=== PATIENT | male | born 1985 | race Caucasian/White ===

== ENCOUNTER 2017-07-04 14:08 | Emergency (ER) | payer OTHER ==
--- NOTE | 2017-07-04 14:39 | ED Physician Documentation ---
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 He did have 2 drinks last night and today he has developed sweats shakes and chest pain. The patient gives a history of regular alcohol use. He drinks vodka probably 5-6 drinks per night and he does not remember being without alcohol for 5 days in a row in the past 12 years.He does recall that he was told when he was 19 that he had some issue with his liver on some blood work that was done and he did not follow-up with this. Review of Systems Constitutional: reports: Fever, Chills, Fatigue, Sweats Eyes: denies: Decreased vision Ears: denies: Ear pain Nose: denies: Rhinorrhea / runny nose, Congestion Throat: denies: Sore throat Cardiac: reports: Chest pain / pressure. denies: Palpitations Respiratory: reports: Cough. denies: Dyspnea GI: denies: Abdominal Pain, Nausea, Vomiting : denies: Dysuria, Frequency PD PAST MEDICAL HISTORY - Past Medical History Past Medical History: Yes GI: GERD - Past Surgical History Past Surgical History: No - Present Medications Home Medications: Ambulatory Orders Medication Instructions Recorded Confirmed Lorazepam [Ativan] 1 - 2 mg PO Q6HR PRN #30 tablet 07/04/17 - Allergies Allergies/Adverse Reactions: Allergies Allergy/AdvReac Type Severity Reaction Status Date / Time No Known Drug Allergies Allergy Verified 07/04/17 14:27 - Social History Does the pt smoke?: No Smoking Status: Never smoker Does the pt drink ETOH?: Yes ETOH Use: Liquor Does the pt have substance abuse?: No - POLST Patient has POLST: No PD ED PE NORMAL - Vitals Vital signs reviewed: Yes (Tachycardic and hypertensive marked with low-grade fever) - General General: Alert and oriented X 3, Well developed/nourished, Other (The patient is shaking consistent with alcohol withdrawal and he appears flushed. 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, No motor deficit, No sensory deficit, Normal speech Eye Opening: Spontaneous Motor: Obeys Commands Verbal: Oriented GCS Score: 15 - Psych Psych: Normal mood, Normal affect Results - Vitals Vitals: Vital Signs - 24 hr 07/04/17 07/04/17 07/04/17 14:20 15:34 16:40 Temperature 37.6 C H 37.5 C Heart Rate 106 H 93 100 Respiratory 18 15 19 Rate Blood Pressure 180/102 H 151/87 H 152/75 H O2 Saturation 96 96 96 Oxygen O2 Source Room air - EKG (time done) 1416 Rate: Rate (enter#) (95) Rhythm: LAE, Other (sinus arrhythmia) Ischemia: Normal ST segments Compare to prior EKG: Old EKG unavailable Computer interpretation: Agree with computer - Labs Labs: Laboratory Tests 07/04/17 07/04/17 07/04/17 14:35 14:35 14:35 WBC 8.7 RBC 4.91 Hgb 15.1 Hct 43.8 MCV 89.2 MCH 30.8 MCHC 34.6 RDW 13.3 Plt Count 167 MPV 7.3 L Neut # 6.9 H Lymph # 1.0 L [place] # 0.8 Eos # 0.0 Baso # 0.1 Absolute Nucleated RBC 0.00 Nucleated RBC % 0.0 PT 13.6 H INR 1.2 Sodium 133 L Potassium 3.4 L Chloride 94 L Carbon Dioxide 23 Anion Gap 16.0 H BUN 6 Creatinine 0.6 Estimated GFR (MDRD) 158 Glucose 134 H Calcium 9.1 Total Bilirubin 1.5 H AST 170 H ALT 128 H Alkaline Phosphatase 109 Troponin I Total Protein 8.6 H Albumin 4.6 Globulin 4.0 Albumin/Globulin Ratio 1.1 Lipase 26 Ethyl Alcohol < 5.0 07/04/17 14:35 WBC RBC Hgb Hct MCV MCH MCHC RDW Plt Count MPV Neut # Lymph # [place] # Eos # Baso # Absolute Nucleated RBC Nucleated RBC % PT INR Sodium Potassium Chloride Carbon Dioxide Anion Gap BUN Creatinine Estimated GFR (MDRD) Glucose Calcium Total Bilirubin AST ALT Alkaline Phosphatase Troponin I < 0.04 Total Protein Albumin Globulin Albumin/Globulin Ratio Lipase Ethyl Alcohol PD MEDICAL DECISION MAKING - ED course Complexity details: reviewed results, re-evaluated patient, considered differential, d/w patient, d/w family ED course: 31-year-old male with acute alcohol withdrawal is administered Ativan intravenously and a banana bag. He has marked improvement and is interested in stopping drinking. We will provide some ativan for withdrawal. Departure - Departure Disposition: 01 Home, Self Care Clinical Impression: Alcohol withdrawal Qualifiers: Complication of substance-induced condition: uncomplicated Qualified Code(s): F10.230 - Alcohol dependence with withdrawal, uncomplicated Condition: Stable Instructions: ED Withdrawal Alcohol Follow-Up: [facility] [Provider Group] Prescriptions: Lorazepam [Ativan] 1 - 2 mg PO Q6HR PRN #30 tablet PRN Reason: withdrawal symptoms
[2017-07-04] MEDS ORDERED: MULTIVITAMIN 10 ML in SODIUM CHLORIDE 0.9% 1,000 ML IV STA (14:40)
[2017-07-04] MEDS ORDERED: MAGNESIUM SULFATE 2 GRAM 2 GM/50 ML BAG IV STA (14:40)
[2017-07-04] MEDS ORDERED: THIAMINE INJ 100 MG, FOLIC ACID INJ 1 MG in SODIUM CHLORIDE 0.9% 100ML 100 ML IV STA (14:40)
[2017-07-04] MEDS ORDERED: LORazepam 2 MG/ML SYRINGE IVP STA ×2 (14:41→17:12)
[2017-07-04 14:46] LABS: BASOPHILS # (AUTO) 0.1 10^3/uL (0.0-0.1); BASOPHILS % (AUTO) 0.7 %; EOSINOPHILS % (AUTO) 0.3 %; HCT - HEMATOCRIT 43.8 % (42.0-52.0); HGB - HEMOGLOBIN 15.1 g/dL (14.0-18.0); LYMPHOCYTES % (AUTO) 11.1 %; MEAN CORPUSCULAR HEMOGLOBIN 30.8 pg (27.0-31.0); MEAN CORPUSCULAR HGB CONC 34.6 g/dL (32.0-36.0); MEAN CORPUSCULAR VOLUME 89.2 fL (80.0-94.0); MEAN PLATELET VOLUME 7.3 fL (7.4-11.4); MONOCYTES # (AUTO) 0.8 10^3/uL (0.0-1.0); MONOCYTES % (AUTO) 8.7 %; NEUTROPHILS # (AUTO) 6.9 10^3/uL (1.5-6.6); NEUTROPHILS % (AUTO) 79.2 %; RED BLOOD COUNT 4.91 10^6/uL (4.70-6.10); RED CELL DISTRIBUTION WIDTH 13.3 % (12.0-15.0); UNCORRECTED WHITE BLOOD COUNT 8.7 x10^3/uL; WHITE BLOOD COUNT 8.7 x10^3/uL (4.8-10.8)
[2017-07-04] MEDS ORDERED: LORazepam 2 MG/ML SYRINGE ONE ×2 (14:50→17:48)
[2017-07-04 14:54] LABS: INR 1.2 (0.8-1.2); PT - PROTHROMBIN TIME 13.6 secs (9.9-12.6)
[2017-07-04 14:59] LABS: ALBUMIN/GLOBULIN RATIO 1.1 (1.0-2.2); BILIRUBIN,TOTAL 1.5 mg/dL (0.2-1.0); BUN - BLOOD UREA NITROGEN 6 mg/dL (6-20); CALCIUM 9.1 mg/dL (8.5-10.3); CARBON DIOXIDE - CO2 23 mmol/L (21-32); CHLORIDE 94 mmol/L (101-111); CREATININE 0.6 mg/dL (0.6-1.2); GFR - MDRD 158 (>89); GLUCOSE 134 mg/dL (70-100); LIPASE 26 U/L (22-51); POTASSIUM 3.4 mmol/L (3.5-5.0); SODIUM 133 mmol/L (135-145); TOTAL PROTEIN 8.6 g/dL (6.7-8.2)
[2017-07-04] MEDS ORDERED: POTASSIUM BICARB 25 MEQ TABLET PO STA (15:17)
[2017-07-04 17:55] VITALS: BP 159/86
== END 2017-07-04 18:16 | disposition home or self-care (01) ==
LOC: ED 14:08
DX: F10.230 Alcohol dependence with withdrawal, uncomplicated (principal); R94.31 Abnormal electrocardiogram [ECG] [EKG]
CPT/HCPCS: 36415; 80053; 80320; 83690; 84484; 85025; 85610; 93005; 96365; 96367; 96368; 96375; 96376; 99284; J2060; J3411

== ENCOUNTER 2019-06-06 15:47 | Emergency (ER) | payer OTHER ==
[2019-06-06 16:03] VITALS: BP 181/91
[2019-06-06] MEDS ORDERED: BUFFERED LIDOCAINE 10 ML SYRINGE SUBQ STA (16:10)
--- NOTE | 2019-06-06 16:45 | ED Physician Documentation ---
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 He was able to control the bleeding with some electrical tape and he presents now to the emergency department for suturing. He has no loss of sensation or function related to the laceration. Review of Systems Constitutional: denies: Fever Eyes: denies: Decreased vision Ears: denies: Ear pain Nose: denies: Congestion Throat: denies: Sore throat Respiratory: denies: Cough GI: denies: Vomiting PD PAST MEDICAL HISTORY - Past Medical History Past Medical History: Yes GI: GERD - Past Surgical History Past Surgical History: No - Present Medications Home Medications: Ambulatory Orders Medication Instructions Recorded Confirmed Lorazepam [Ativan] 1 - 2 mg PO Q6HR PRN #30 tablet 07/04/17 - Allergies Allergies/Adverse Reactions: Allergies Allergy/AdvReac Type Severity Reaction Status Date / Time No Known Drug Allergies Allergy Verified 06/06/19 16:00 - Social History Does the pt smoke?: No Smoking Status: Never smoker Does the pt drink ETOH?: Yes Does the pt have substance abuse?: No - Immunizations Immunizations: TDAP >10years/unknown, Other immun not current - POLST Patient has POLST: No PD ED PE NORMAL - Vitals Vital signs reviewed: Yes (hypertensive ) - General General: Alert and oriented X 3, No acute distress, Well developed/nourished - HEENT HEENT: Atraumatic, PERRL, EOMI - Neck Neck: Supple, no meningeal sign - Respiratory Respiratory: No respiratory distress - Derm Derm: Normal color, Warm and dry - Extremities Extremities: No deformity, Other (There is a 6cm laceration to the volar left forearm without invovlement of deeper structures. The distal n/v is intact. 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, No motor deficit, No sensory deficit, Normal speech Eye Opening: Spontaneous Motor: Obeys Commands Verbal: Oriented GCS Score: 15 - Psych Psych: Normal mood, Normal affect Results - Vitals Vitals: Vital Signs - 24 hr 06/06/19 16:00 Temperature 36.8 C Heart Rate 94 Respiratory 18 Rate Blood Pressure 181/91 H O2 Saturation 99 Oxygen O2 Source Room air Procedures - Laceration (location) left forearm Length in cm: 6 Wound type: Linear, Clean Neurovascular status: Sensory intact, Motor intact, Vascular intact Anesthesia: Lidocaine 1%, With bicarb Wound Preparation: Hibiclens, Irrigated copiously NS, Wound explored, To the base Skin layer closure: Nylon, Interrupted, Size #-0 - enter number (4-0) Other: Patient tolerated well, No complications, Neurovascular intact, Dressing applied, Tetanus booster given Complexity: Simple PD MEDICAL DECISION MAKING - ED course Complexity details: considered differential, d/w patient ED course: 33-year-old male with a 6 cm volar forearm laceration is sutured and given a tetanus booster. He will need to have sutures removed in 7 to 10 days Departure - Departure Disposition: 01 Home, Self Care Clinical Impression: Forearm laceration Qualifiers: Encounter type: initial encounter Laterality: left Qualified Code(s): S51.812A - Laceration without foreign body of left forearm, initial encounter Condition: Stable Instructions: ED Laceration Ext Sutr Stap Tape Follow-Up: Carlos Lino MD [Provider Admit Priv/Credential] - Comments: Sutures will need to be removed in 7 to 10 days Discharge Date/Time: 06/06/19 16:58
[2019-06-06] MEDS ORDERED: TETANUS/DIPHTHERIA/PERTUSSIS 0.5 ML SYRINGE IM ONE (16:46)
== END 2019-06-06 16:58 | disposition home or self-care (01) ==
LOC: ED 15:47
DX: S51.812A Laceration without foreign body of left forearm, initial encounter (principal); W26.8XXA Contact with other sharp object(s), not elsewhere classified, initial encounter; Y93.89 Activity, other specified; Y99.0 Civilian activity done for income or pay; Z23 Encounter for immunization
CPT/HCPCS: 12002; 90471

== ENCOUNTER 2020-12-26 12:13 | Emergency (ER) | payer OTHER ==
[2020-12-26 13:01] LABS: BASOPHILS # (AUTO) 0.1 10^3/uL (0.0-0.1); BASOPHILS % (AUTO) 0.6 %; EOSINOPHILS # (AUTO) 0.1 10^3/uL (0.0-0.7); EOSINOPHILS % (AUTO) 0.9 %; HCT - HEMATOCRIT 35.8 % (42.0-52.0); HGB - HEMOGLOBIN 13.1 g/dL (14.0-18.0); LYMPHOCYTES # (AUTO) 0.9 10^3/uL (1.5-3.5); LYMPHOCYTES % (AUTO) 9.6 %; MEAN CORPUSCULAR HEMOGLOBIN 32.6 pg (27.0-31.0); MEAN CORPUSCULAR HGB CONC 36.6 g/dL (32.0-36.0); MEAN CORPUSCULAR VOLUME 89.1 fL (80.0-94.0); MEAN PLATELET VOLUME 10.1 fL (7.4-11.4); MONOCYTES # (AUTO) 1.2 10^3/uL (0.0-1.0); MONOCYTES % (AUTO) 12.2 %; NEUTROPHILS # (AUTO) 7.4 10^3/uL (1.5-6.6); NEUTROPHILS % (AUTO) 76.4 %; PLT - PLATELET COUNT 88 10^3/uL (130-450); RED BLOOD COUNT 4.02 10^6/uL (4.70-6.10); RED CELL DISTRIBUTION WIDTH 20.1 % (12.0-15.0); WHITE BLOOD COUNT 9.7 x10^3/uL (4.8-10.8)
[2020-12-26 13:26] LABS: KETONES,URINE (UA) TRACE mg/dL (NEGATIVE); LEUKOCYTE ESTERASE, URINE NEGATIVE (NEGATIVE); OCCULT BLOOD,URINE TRACE-INTA (NEGATIVE); PH,URINE 6.5 PH (5.0-7.5)
[2020-12-26 13:30] LABS: CLARITY,URINE CLEAR (CLEAR)
[2020-12-26 13:31] LABS: BILIRUBIN,URINE LARGE (NEGATIVE); GLUCOSE, URINE (UA) 100 mg/dL (NEGATIVE); ICTOTEST,URINE POSITIVE
[2020-12-26 13:32] LABS: ALBUMIN 2.7 g/dL (3.2-5.5); ALBUMIN/GLOBULIN RATIO 0.6 (1.0-2.2); BILIRUBIN,TOTAL 23.7 mg/dL (0.2-1.0); CALCIUM 8.2 mg/dL (8.5-10.3); CREATININE 0.4 mg/dL (0.6-1.2); ETOH - ETHANOL 77.4 mg/dL; POTASSIUM 3.4 mmol/L (3.5-5.0); TOTAL PROTEIN 7.3 g/dL (6.7-8.2)
--- NOTE | 2020-12-26 13:32 | ED Physician Documentation ---
PD HPI ABD PAIN - Stated complaint Stated Complaint: YELLOWING OF SKIN/EYES - Chief complaint Chief Complaint: Abd Pain - History obtained from History obtained from: Patient - Additional information Additional information: 35-year-old gentleman has developed abdominal swelling, vague feeling of unease and yellow eyes over the last 3 weeks. No history of liver problems. No history of IV drug use ever. No recent travel or sick contacts. Does not take Tylenol. Notes easy bleeding and bruising but says that is chronic. States he drinks about 2 tumblers of wine per night. No other significant alcohol use. Review of Systems Ten Systems: 10 systems reviewed and negative Constitutional: reports: Fatigue GI: reports: Abdominal Swelling. denies: Abdominal Pain, Nausea, Constipation, Diarrhea PD PAST MEDICAL HISTORY - Past Medical History Past Medical History: Yes GI: GERD - Past Surgical History Past Surgical History: No - Present Medications Home Medications: Ambulatory Orders Medication Instructions Recorded Confirmed Lorazepam [Ativan] 1 - 2 mg PO Q6HR PRN #30 tablet 07/04/17 Furosemide [Lasix] 40 mg PO DAILY #14 tablet 12/26/20 LORazepam [Ativan] 1 mg PO TID PRN #12 tablet 12/26/20 Multivit-Min/Folic/Vit K/Lycop 1 each PO DAILY #30 tablet 12/26/20 [One Daily Men's 50 Plus D3 Tab] Omeprazole 40 mg PO DAILY #30 cap 12/26/20 PrednisoLONE [Prelone] 40 mg PO DAILY 42 Days #560 ml 12/26/20 Spironolactone [Aldactone] 100 mg PO DAILY #14 tablet 12/26/20 Thiamine [Vitamin B-1] 100 mg PO DAILY #30 tablet 12/26/20 - Allergies Allergies/Adverse Reactions: Allergies Allergy/AdvReac Type Severity Reaction Status Date / Time No Known Drug Allergies Allergy Verified 12/26/20 12:29 - Social History Does the pt smoke?: No Smoking Status: Never smoker Does the pt drink ETOH?: Yes ETOH Use: Wine Does the pt have substance abuse?: No - Immunizations Immunizations are current?: No Immunizations: TDAP >10years/unknown, Other immun not current - POLST Patient has POLST: No PD ED PE NORMAL - Vitals Vital signs reviewed: Yes - General General: Alert and oriented X 3, Other (He is quite jaundiced) - Neck Neck: Supple, no meningeal sign, No bony TTP - Cardiac Cardiac: RRR, No murmur - Respiratory Respiratory: No respiratory distress, Clear bilaterally - Abdomen Abdomen: Non tender, Other (Has nontender and not tense ascites) - Back Back: No CVA TTP, No spinal TTP - Derm Derm: Normal color, Warm and dry - Extremities Extremities: Other (Mild pitting pedal edema) - Neuro Neuro: Alert and oriented X 3, Normal speech Results - Vitals Vitals: Vital Signs - 24 hr 12/26/20 12/26/20 12/26/20 12:21 12:29 15:28 Temperature 36.5 C 36.5 C 36.5 C Heart Rate 105 H 105 H 92 Respiratory 18 18 12 Rate Blood Pressure 139/91 H 139/91 H 140/83 H O2 Saturation 98 98 97 Oxygen O2 Source Room air - Labs Labs: Laboratory Tests 12/26/20 12/26/20 12/26/20 12:55 12:55 13:18 WBC 9.7 RBC 4.02 L Hgb 13.1 L Hct 35.8 L MCV 89.1 MCH 32.6 H MCHC 36.6 H RDW 20.1 H Plt Count 88 L MPV 10.1 Neut # (Auto) 7.4 H Lymph # (Auto) 0.9 L [place] # (Auto) 1.2 H Eos # (Auto) 0.1 Baso # (Auto) 0.1 Absolute Nucleated RBC 0.00 Nucleated RBC % 0.0 PT INR Sodium 128 L Potassium 3.4 L Chloride 91 L Carbon Dioxide 26 Anion Gap 11.0 BUN 5 L Creatinine 0.4 L Estimated GFR (MDRD) 246 Glucose 99 Calcium 8.2 L Total Bilirubin 23.7 H AST 184 H ALT 44 Alkaline Phosphatase 244 H Total Protein 7.3 Albumin 2.7 L Globulin 4.6 H Albumin/Globulin Ratio 0.6 L Lipase 52 H Urine Color DK. ORANGE Urine Clarity CLEAR Urine pH 6.5 Ur Specific Walls 1.015 Urine Protein Urine Glucose (UA) 100 H Urine Ketones TRACE Urine Occult Blood TRACE-INTA Urine Nitrite Urine Bilirubin LARGE H Urine Urobilinogen Ur Leukocyte Esterase NEGATIVE Urine RBC 0-5 Urine WBC 4-5 Ur Squamous Epith Cells FEW Squamous Urine Bacteria Few Ur Microscopic Review INDICATED Urine Culture Comments NOT INDICATED Ethyl Alcohol 77.4 12/26/20 13:30 WBC RBC Hgb Hct MCV MCH MCHC RDW Plt Count MPV Neut # (Auto) Lymph # (Auto) [place] # (Auto) Eos # (Auto) Baso # (Auto) Absolute Nucleated RBC Nucleated RBC % PT 21.0 H INR 2.0 H Sodium Potassium Chloride Carbon Dioxide Anion Gap BUN Creatinine Estimated GFR (MDRD) Glucose Calcium Total Bilirubin AST ALT Alkaline Phosphatase Total Protein Albumin Globulin Albumin/Globulin Ratio Lipase Urine Color Urine Clarity Urine pH Ur Specific Walls Urine Protein Urine Glucose (UA) Urine Ketones Urine Occult Blood Urine Nitrite Urine Bilirubin Urine Urobilinogen Ur Leukocyte Esterase Urine RBC Urine WBC Ur Squamous Epith Cells Urine Bacteria Ur Microscopic Review Urine Culture Comments Ethyl Alcohol PD MEDICAL DECISION MAKING - ED course ED course: This is a 35-year-old gentleman with alcoholic hepatitis. Meld score is 30 points giving him an estimated 3-month mortality of 52.6% and his discriminant function is 70 mandating treatment with glucocorticoids. Abd sono IMPRESSION: 1. Enlarged, coarsened and heterogeneous liver with lobular contours compatible with cirrhosis. There is incidental note of recanalized umbilical vein which may represent sequela of portal hypertension. 2. Possible gallstone versus sludge ball measuring 3.1 cm. Gallbladder wall thickening which may be in part due to presence of ascites and chronic liver disease. Recommend correlating for clinical symptoms of acute cholecystitis. 3. Scattered ascites. CT Abd IMPRESSION: Cirrhotic liver, with a recanalized umbilical vein and moderate to prominent ascites. Upper abdominal varices and gastroesophageal varices are seen. There is associated splenomegaly. Abnormal gallbladder, with a prominent gallstone versus sludge ball within its lumen. The gallbladder wall thickening is nonspecific in this patient with ascites. Mild to moderate right-sided hydronephrosis can be seen. Incidental note is made of: Fat-containing right inguinal hernia Departure - Departure Disposition: Home, Self Care Clinical Impression: Alcoholic hepatitis Qualifiers: Ascites presence: with ascites Qualified Code(s): K70.11 - Alcoholic hepatitis with ascites Condition: Good Record reviewed to determine appropriate education?: Yes Instructions: Cirrhosis Liver Dc, ED Alcohol Abuse Follow-Up: Tabitha Patel PA-C [Physician No Access] - Prescriptions: Spironolactone [Aldactone] 100 mg PO DAILY #14 tablet LORazepam [Ativan] 1 mg PO TID PRN #12 tablet PRN Reason: Anxiety Furosemide [Lasix] 40 mg PO DAILY #14 tablet Omeprazole 40 mg PO DAILY #30 cap Multivit-Min/Folic/Vit K/Lycop [One Daily Men's 50 Plus D3 Tab] 1 each PO DAILY #30 tablet PrednisoLONE [Prelone] 40 mg PO DAILY 42 Days #560 ml Thiamine [Vitamin B-1] 100 mg PO DAILY #30 tablet Comments: Try to eat a normal number of calories, it is common for people who have alcoholic hepatitis to kind of feel sick but it is important to maintain protein intake. Avoid Tylenol. Imperative to quit drinking as we discussed. Need to follow-up with a primary care physician, The on-call provider taking new patients today is listed on this form, call Monday. You also need to follow-up with a liver specialist, a "wholesale representative." Call Monday for an appointment Demetrio Parisi MD Hepatology, Adult Gastroenterology [address] [place] [address] For purposes of follow-up, your labs today are as follows: CBC: WC BC 9.7, Hgb 13.1, HCT 35.8, MCV 89.1, platelets 88 PT 21/INR 2.0 Chemistries: Sodium 128, potassium 3.4, chloride 91, BUN 5, creatinine 0.4, glucose 99, bilirubin 23.7, AST 184, ALT 44, alkaline phosphatase 244, and albumin 2.7 Ethyl alcohol 77.4
[2020-12-26 13:41] LABS: BACTERIA,URINE Few /HPF (None Seen); RBC,URINE 0-5 /HPF (0-5); SQUAMOUS EPITHELIAL CELL,UR FEW Squamous (<= Few)
[2020-12-26] MEDS ORDERED: IOVERSOL 320 100 ML VIAL IVP ONE ×2 (15:35→16:31)
--- NOTE | 2020-12-26 16:49 | CT Report ---
PROCEDURE: Abdomen/Pelvis W INDICATIONS: IV only, alcoholic cirrhosis with borderline CBD CONTRAST: IV CONTRAST: Optiray 320 ml: 100 PO CONTRAST: *NO PO CONTRAST TECHNIQUE: After the administration of nonionic IV contrast, 5 mm thick sections acquired from the diaphragms to the symphysis. 5 mm thick coronal and sagittal reformats were acquired. For radiation dose reducti on, the following was used: automated exposure control, adjustment of mA and/or kV according to byron ent size. COMPARISON: Correlation is made with the accompanying ultrasound examination, 12/26/2020. FINDINGS: Image quality: Excellent. ABDOMEN: Lung bases: Lung bases are clear. Heart size is normal. Solid organs: The liver is prominent in size and demonstrates an irregular contour. No focal liver m asses are seen. There is a prominent recanalized umbilical vein. Upper abdominal varices and gastroes ophageal varices can be seen. The spleen is enlarged, measuring 14 cm craniocaudal. Gallbladder demonstrates wall thickening, with a likely sludge ball versus a partially calcified gall stone within its lumen Biliary system is non dilated. Pancreas enhances normally. No adrenal nodul es. Kidneys demonstrate normal size and enhancement. There is mild to moderate right-sided hydroneph rosis. Peritoneum and bowel: There is moderate to prominent ascites, which measures up to 17 [place] uni ts, which is consistent with mildly complicated fluid. Bowel loops demonstrate normal wall thickness and caliber. Nodes and vessels: No retroperitoneal or mesenteric adenopathy by size criteria. Aorta and inferior vena cava are normal in size. Miscellaneous: No ventral hernias. PELVIS: Genitourinary: Bladder wall thickness is normal. Miscellaneous: A fat-containing right inguinal hernia is seen. No enlarged inguinal or pelvic lymph nodes are seen. Bones: No suspicious bony lesions. No vertebral body compression fractures. IMPRESSION: Cirrhotic liver, with a recanalized umbilical vein and moderate to prominent ascites. Upper abdominal varices and gastroesophageal varices are seen. There is associated splenomegaly. Abnormal gallbladder, with a prominent gallstone versus sludge ball within its lumen. The gallbladder wall thickening is nonspecific in this patient with ascites. Mild to moderate right-sided hydronephrosis can be seen. Incidental note is made of: Fat-containing right inguinal hernia Reviewed by: Eloy Martinez MD on 12/26/2020 3:48 PM AKDT Approved by: Eloy Martinez MD on 12/26/2020 3:48 PM ANDRAE Station ID: [id number]
--- NOTE | 2020-12-26 16:52 | Ultrasound Report ---
PROCEDURE: Abdomen Limited INDICATIONS: jaundice TECHNIQUE: Real-time scanning was performed of the abdominal and retroperitoneal organs, with image documentatio n. COMPARISON: None. FINDINGS: Liver: Liver demonstrates coarse echotexture. Liver is diffusely echogenic. Lobulated liver contour. No focal intrahepatic masses. Liver is enlarged. Incidental note of recanalized umbilical vein. Gallbladder: Gallbladder contains a sludge ball versus gallstone measuring 3.1 x 2.7 x 2.8 cm. Gallbl adder wall is thickened at 8 mm. Small amount of pericholecystic fluid. Biliary ducts: Intrahepatic bile ducts are non-dilated. Extrahepatic bile duct caliber measures 5 m m. Normal is 6-7 mm or less in diameter, or 10 mm or less post-cholecystectomy. Pancreas: Pancreas not well seen secondary to bowel gas. Kidneys: Right kidney is normal in size and echotexture. Right kidney measures 13.9 cm long. No hyd ronephrosis or nephrolithiasis. No solid masses. IVC: Intrahepatic inferior vena cava is patent. Miscellaneous: There is ascites noted throughout the abdomen IMPRESSION: 1. Enlarged, coarsened and heterogeneous liver with lobular contours compatible with cirrhosis. There is incidental note of recanalized umbilical vein which may represent sequela of portal hypertension. 2. Possible gallstone versus sludge ball measuring 3.1 cm. Gallbladder wall thickening which may be i n part due to presence of ascites and chronic liver disease. Recommend correlating for clinical sympt oms of acute cholecystitis. 3. Scattered ascites. Reviewed by: Ezra Ardon MD on 12/26/2020 4:51 PM PDT Approved by: Ezra Ardon MD on 12/26/2020 4:51 PM PDT Station ID: [id number]
[2020-12-26] MEDS ORDERED: LORazepam 1 MG TABLET PO STA (17:12)
[2020-12-26 17:17] VITALS: BP 143/93
[2020-12-28 15:12] LABS: HEPATITIS A IGM NON-REACTIVE (NON-REACTIVE); HEPATITIS B CORE ANTIBODY IGM NON-REACTIVE (NON-REACTIVE); HEPATITIS B SURFACE ANTIGEN NON-REACTIVE (NON-REACTIVE); HEPATITIS C ANTIBODY NON-REACTIVE (NON-REACTIVE)
== END 2020-12-26 17:17 | disposition home or self-care (01) ==
LOC: ED 12:13
DX: K70.11 Alcoholic hepatitis with ascites (principal); K70.31 Alcoholic cirrhosis of liver with ascites
CPT/HCPCS: 36415; 74177; 76705; 80053; 80074; 80320; 81001; 83690; 85025; 85610; 99285; J8499; Q9967; 81003; 87086

== ENCOUNTER 2021-02-26 08:31 | Outpatient (CLI) | payer OTHER ==
[2021-02-26 09:06] LABS: INR 1.7 (0.8-1.2); PT - PROTHROMBIN TIME 18.2 secs (9.9-12.6)
[2021-02-26 09:12] LABS: ALBUMIN 2.2 g/dL (3.2-5.5); ALBUMIN/GLOBULIN RATIO 0.6 (1.0-2.2); BILIRUBIN,TOTAL 5.6 mg/dL (0.2-1.0); CALCIUM 8.1 mg/dL (8.5-10.3); CREATININE 0.7 mg/dL (0.6-1.2); POTASSIUM 4.3 mmol/L (3.5-5.0); TOTAL PROTEIN 5.9 g/dL (6.7-8.2)
== END 2021-02-26 08:32 | disposition home or self-care (01) ==
LOC: LAB 08:31
PROVIDERS: ATTEND Family Medicine
DX: I82.419 Acute embolism and thrombosis of unspecified femoral vein (principal); K70.31 Alcoholic cirrhosis of liver with ascites
CPT/HCPCS: 36415; 80053; 85610

== ENCOUNTER 2021-03-01 08:38 | Outpatient (CLI) | payer OTHER ==
[2021-03-01 09:26] LABS: INR 1.7 (0.8-1.2); PT - PROTHROMBIN TIME 18.1 secs (9.9-12.6)
[2021-03-01 09:33] LABS: ALBUMIN 2.3 g/dL (3.2-5.5); ALBUMIN/GLOBULIN RATIO 0.6 (1.0-2.2); BILIRUBIN,TOTAL 6.1 mg/dL (0.2-1.0); CALCIUM 8.2 mg/dL (8.5-10.3); CREATININE 0.8 mg/dL (0.6-1.2); POTASSIUM 4.8 mmol/L (3.5-5.0)
== END 2021-03-01 08:39 | disposition home or self-care (01) ==
LOC: LAB 08:38
PROVIDERS: ATTEND Family Medicine
DX: I82.419 Acute embolism and thrombosis of unspecified femoral vein (principal); K70.31 Alcoholic cirrhosis of liver with ascites
CPT/HCPCS: 36415; 80053; 85610

== ENCOUNTER 2021-03-02 07:03 | Outpatient (CLI) | payer OTHER ==
[2021-03-02 07:32] LABS: INR 1.7 (0.8-1.2); PT - PROTHROMBIN TIME 18.7 secs (9.9-12.6)
[2021-03-02 07:40] LABS: ALBUMIN 2.2 g/dL (3.2-5.5); ALBUMIN/GLOBULIN RATIO 0.6 (1.0-2.2); BILIRUBIN,TOTAL 5.9 mg/dL (0.2-1.0); CALCIUM 8.2 mg/dL (8.5-10.3); CREATININE 0.7 mg/dL (0.6-1.2); POTASSIUM 4.5 mmol/L (3.5-5.0); TOTAL PROTEIN 5.9 g/dL (6.7-8.2)
== END 2021-03-02 07:04 | disposition home or self-care (01) ==
LOC: LAB 07:03
PROVIDERS: ATTEND Family Medicine
DX: I82.419 Acute embolism and thrombosis of unspecified femoral vein (principal); K70.31 Alcoholic cirrhosis of liver with ascites
CPT/HCPCS: 36415; 80053; 85610

== ENCOUNTER 2021-03-04 07:09 | Outpatient (CLI) | payer OTHER ==
[2021-03-04 08:15] LABS: INR 2.4 (0.8-1.2); PT - PROTHROMBIN TIME 25.4 secs (9.9-12.6)
[2021-03-04 08:22] LABS: ALBUMIN 2.3 g/dL (3.2-5.5); ALBUMIN/GLOBULIN RATIO 0.6 (1.0-2.2); BILIRUBIN,TOTAL 5.2 mg/dL (0.2-1.0); CALCIUM 8.1 mg/dL (8.5-10.3); CREATININE 0.7 mg/dL (0.6-1.2); POTASSIUM 4.3 mmol/L (3.5-5.0); TOTAL PROTEIN 6.1 g/dL (6.7-8.2)
== END 2021-03-04 07:10 | disposition home or self-care (01) ==
LOC: LAB 07:09
PROVIDERS: ATTEND Family Medicine
DX: I82.419 Acute embolism and thrombosis of unspecified femoral vein (principal); K70.31 Alcoholic cirrhosis of liver with ascites
CPT/HCPCS: 36415; 80053; 85610

== ENCOUNTER 2021-03-08 07:53 | Outpatient (CLI) | payer OTHER ==
[2021-03-08 08:25] LABS: PT - PROTHROMBIN TIME 53.7 secs (9.9-12.6)
[2021-03-08 08:35] LABS: ALBUMIN 2.2 g/dL (3.2-5.5); ALBUMIN/GLOBULIN RATIO 0.6 (1.0-2.2); BILIRUBIN,TOTAL 4.8 mg/dL (0.2-1.0); CREATININE 0.8 mg/dL (0.6-1.2); POTASSIUM 4.3 mmol/L (3.5-5.0); TOTAL PROTEIN 5.9 g/dL (6.7-8.2)
[2021-03-08 08:40] LABS: INR 5.3 (0.8-1.2)
== END 2021-03-08 07:54 | disposition home or self-care (01) ==
LOC: LAB 07:53
PROVIDERS: ATTEND Family Medicine
DX: I82.419 Acute embolism and thrombosis of unspecified femoral vein (principal); K70.31 Alcoholic cirrhosis of liver with ascites
CPT/HCPCS: 36415; 80053; 85610

== ENCOUNTER 2021-03-10 07:45 | Outpatient (CLI) | payer OTHER ==
[2021-03-10 08:16] LABS: ALBUMIN 2.2 g/dL (3.2-5.5); ALBUMIN/GLOBULIN RATIO 0.6 (1.0-2.2); BILIRUBIN,TOTAL 5.7 mg/dL (0.2-1.0); CALCIUM 8.4 mg/dL (8.5-10.3); CREATININE 0.7 mg/dL (0.6-1.2); POTASSIUM 4.4 mmol/L (3.5-5.0)
[2021-03-10 09:23] LABS: INR 3.1 (0.8-1.2); PT - PROTHROMBIN TIME 31.8 secs (9.9-12.6)
== END 2021-03-10 07:46 | disposition home or self-care (01) ==
LOC: LAB 07:45
PROVIDERS: ATTEND Family Medicine
DX: I82.419 Acute embolism and thrombosis of unspecified femoral vein (principal); K70.31 Alcoholic cirrhosis of liver with ascites
CPT/HCPCS: 36415; 80053; 85610

== ENCOUNTER 2021-03-12 10:10 | Outpatient (CLI) | payer OTHER ==
[2021-03-12 10:36] LABS: INR 2.3 (0.8-1.2); PT - PROTHROMBIN TIME 24.1 secs (9.9-12.6)
[2021-03-12 10:46] LABS: ALBUMIN 2.3 g/dL (3.2-5.5); ALBUMIN/GLOBULIN RATIO 0.6 (1.0-2.2); BILIRUBIN,TOTAL 4.6 mg/dL (0.2-1.0); CALCIUM 8.8 mg/dL (8.5-10.3); CREATININE 0.7 mg/dL (0.6-1.2); POTASSIUM 4.3 mmol/L (3.5-5.0); TOTAL PROTEIN 6.1 g/dL (6.7-8.2)
== END 2021-03-12 10:11 | disposition home or self-care (01) ==
LOC: LAB 10:10
PROVIDERS: ATTEND Internal Medicine
DX: I82.419 Acute embolism and thrombosis of unspecified femoral vein (principal); K70.31 Alcoholic cirrhosis of liver with ascites
CPT/HCPCS: 36415; 80053; 85610

== ENCOUNTER 2021-03-15 08:49 | Outpatient (CLI) | payer OTHER ==
[2021-03-15 09:28] LABS: ALBUMIN 2.2 g/dL (3.2-5.5); ALBUMIN/GLOBULIN RATIO 0.6 (1.0-2.2); BILIRUBIN,TOTAL 4.4 mg/dL (0.2-1.0); CALCIUM 8.4 mg/dL (8.5-10.3); CREATININE 0.6 mg/dL (0.6-1.2); TOTAL PROTEIN 6.2 g/dL (6.7-8.2)
[2021-03-15 09:34] LABS: INR 2.1 (0.8-1.2); PT - PROTHROMBIN TIME 22.3 secs (9.9-12.6)
== END 2021-03-15 08:50 | disposition home or self-care (01) ==
LOC: LAB 08:49
PROVIDERS: ATTEND Family Medicine
DX: I82.419 Acute embolism and thrombosis of unspecified femoral vein (principal); K70.31 Alcoholic cirrhosis of liver with ascites
CPT/HCPCS: 36415; 80053; 85610

== ENCOUNTER 2021-03-19 08:05 | Outpatient (CLI) | payer OTHER ==
[2021-03-19 08:31] LABS: ALBUMIN 2.6 g/dL (3.2-5.5); ALBUMIN/GLOBULIN RATIO 0.6 (1.0-2.2); BILIRUBIN,TOTAL 4.3 mg/dL (0.2-1.0); CALCIUM 8.9 mg/dL (8.5-10.3); CREATININE 0.7 mg/dL (0.6-1.2); TOTAL PROTEIN 6.8 g/dL (6.7-8.2)
== END 2021-03-19 08:06 | disposition home or self-care (01) ==
LOC: LAB 08:05
PROVIDERS: ATTEND Family Medicine
DX: I82.419 Acute embolism and thrombosis of unspecified femoral vein (principal); K70.31 Alcoholic cirrhosis of liver with ascites
CPT/HCPCS: 36415; 80053; 85610

== ENCOUNTER 2021-03-31 11:23 | Outpatient (CLI) | payer OTHER ==
[2021-03-31 11:44] LABS: INR 2.4 (0.8-1.2); PT - PROTHROMBIN TIME 25.9 secs (9.9-12.6)
[2021-03-31 12:04] LABS: ALBUMIN 2.7 g/dL (3.2-5.5); ALBUMIN/GLOBULIN RATIO 0.7 (1.0-2.2); BILIRUBIN,TOTAL 2.7 mg/dL (0.2-1.0); CALCIUM 8.7 mg/dL (8.5-10.3); CREATININE 0.6 mg/dL (0.6-1.2); POTASSIUM 4.4 mmol/L (3.5-5.0); TOTAL PROTEIN 6.7 g/dL (6.7-8.2)
== END 2021-03-31 11:24 | disposition home or self-care (01) ==
LOC: LAB 11:23
PROVIDERS: ATTEND Internal Medicine
DX: I82.419 Acute embolism and thrombosis of unspecified femoral vein (principal); K70.31 Alcoholic cirrhosis of liver with ascites
CPT/HCPCS: 36415; 80053; 85610

== ENCOUNTER 2021-04-15 08:38 | Outpatient (CLI) | payer OTHER ==
[2021-04-15 08:57] LABS: INR 2.2 (0.8-1.2); PT - PROTHROMBIN TIME 24.6 secs (9.9-12.6)
[2021-04-15 09:08] LABS: ALBUMIN 2.8 g/dL (3.2-5.5); ALBUMIN/GLOBULIN RATIO 0.8 (1.0-2.2); BILIRUBIN,TOTAL 2.1 mg/dL (0.2-1.0); CALCIUM 8.8 mg/dL (8.5-10.3); CREATININE 0.7 mg/dL (0.6-1.2); TOTAL PROTEIN 6.5 g/dL (6.7-8.2)
== END 2021-04-15 08:39 | disposition home or self-care (01) ==
LOC: LAB 08:38
PROVIDERS: ATTEND Family Medicine
DX: I82.419 Acute embolism and thrombosis of unspecified femoral vein (principal); K70.31 Alcoholic cirrhosis of liver with ascites
CPT/HCPCS: 36415; 80053; 85610

== ENCOUNTER 2021-04-17 18:48 | Emergency (ER) | payer OTHER, MEDICAID ==
--- NOTE | 2021-04-17 19:05 | ED Physician Documentation ---
PD HPI CHEST PAIN - Stated complaint Stated Complaint: CHEST PX - Chief complaint Chief Complaint: Cardiac - History obtained from History obtained from: Patient - History of Present Illness Timing - onset: How many hours ago (08/08), Today Timing - onset during: Light activity Timing - details: Abrupt onset, Still present Quality: Sharp, Stabbing, Pain Location: Substernal, Epigastric Radiation: Back. No: Neck, Left upper extremity Improved by: No: Rest Worsened by: Palpation. No: Inspiration, Movement Associated symptoms: General Weakness. No: Shortness of air, Nausea, Feeling faint / dizzy Similar symptoms before: Has not had sx before Recently seen: Not recently seen Review of Systems Constitutional: denies: Fever, Chills Nose: denies: Rhinorrhea / runny nose, Congestion Throat: denies: Sore throat Cardiac: reports: Calf pain (since December due to DVT and residual pain; not recnetly increased.) Respiratory: denies: Dyspnea, Cough PD PAST MEDICAL HISTORY - Past Medical History Cardiovascular: None Endocrine/Autoimmune: None GI: GERD, Cirrhosis - Past Surgical History Past Surgical History: No - Present Medications Home Medications: Ambulatory Orders Medication Instructions Recorded Confirmed Lorazepam [Ativan] 1 - 2 mg PO Q6HR PRN #30 tablet 07/04/17 Furosemide [Lasix] 40 mg PO DAILY #14 tablet 12/26/20 LORazepam [Ativan] 1 mg PO TID PRN #12 tablet 12/26/20 Multivit-Min/Folic/Vit K/Lycop 1 each PO DAILY #30 tablet 12/26/20 [One Daily Men's 50 Plus D3 Tab] Omeprazole 40 mg PO DAILY #30 cap 12/26/20 PrednisoLONE [Prelone] 40 mg PO DAILY 42 Days #560 ml 12/26/20 Spironolactone [Aldactone] 100 mg PO DAILY #14 tablet 12/26/20 Thiamine [Vitamin B-1] 100 mg PO DAILY #30 tablet 12/26/20 - Allergies Allergies/Adverse Reactions: Allergies Allergy/AdvReac Type Severity Reaction Status Date / Time No Known Drug Allergies Allergy Verified 04/17/21 18:57 - Social History Does the pt smoke?: No Smoking Status: Never smoker Does the pt drink ETOH?: Yes Does the pt have substance abuse?: No - Immunizations Immunizations are current?: No Immunizations: TDAP >10years/unknown, Other immun not current - POLST Patient has POLST: No PD ED PE NORMAL - Vitals Vital signs reviewed: Yes - General General: Alert and oriented X 3, No acute distress, Well developed/nourished - HEENT HEENT: Pharynx benign - Neck Neck: Supple, no meningeal sign, No adenopathy - Cardiac Cardiac: RRR, No murmur - Respiratory Respiratory: Clear bilaterally - Abdomen Abdomen: Normal bowel sounds, Soft, Non distended, No organomegaly, Other (tender in mid to upper abd to palpation. No percussion tenderness. ) - Back Back: No CVA TTP - Derm Derm: Normal color, Warm and dry - Extremities Extremities: No tenderness to palpate, Normal ROM s pain, No edema, No calf tenderness / cord - Neuro Neuro: Alert and oriented X 3, No motor deficit, Normal speech Results - Vitals Vitals: Vital Signs - 24 hr 04/17/21 04/17/21 04/17/21 18:54 19:05 20:09 Temperature 36.5 C Heart Rate 82 86 92 Respiratory 16 18 14 Rate Blood Pressure 119/61 114/70 122/78 O2 Saturation 100 100 100 04/17/21 04/17/21 20:54 21:19 Temperature Heart Rate 104 H 89 Respiratory 28 H 15 Rate Blood Pressure 122/78 109/66 O2 Saturation 100 100 Oxygen O2 Source Room air - EKG (time done) No standard instances Rate: Rate (enter#) (79) Rhythm: NSR [place]: Normal Intervals: Normal DC QRS: Normal Ischemia: Normal ST segments. No: ST elevation c/w ischemia, ST depression Compare to prior EKG: Old EKG unavailable - Labs Labs: Laboratory Tests 04/17/21 04/17/21 04/17/21 19:06 19:09 19:09 WBC 8.6 RBC 3.87 L Hgb 12.2 L Hct 35.6 L MCV 92.0 MCH 31.5 H MCHC 34.3 RDW 14.8 Plt Count 137 MPV 9.7 Neut # (Auto) 4.1 Lymph # (Auto) 3.1 [place] # (Auto) 0.9 Eos # (Auto) 0.3 Baso # (Auto) 0.1 Absolute Nucleated RBC 0.00 Nucleated RBC % 0.0 PT 22.9 H INR 2.1 H Sodium 139 Potassium 3.9 Chloride 107 Carbon Dioxide 22 Anion Gap 10.0 BUN 9 Creatinine 0.7 Estimated GFR (MDRD) 129 Glucose 111 H Calcium 8.9 Total Bilirubin 1.9 H AST 52 H ALT 43 Alkaline Phosphatase 123 H Troponin I High Sens Total Protein 6.7 Albumin 3.1 L Globulin 3.6 Albumin/Globulin Ratio 0.9 L Lipase 55 H 04/17/21 19:09 WBC RBC Hgb Hct MCV MCH MCHC RDW Plt Count MPV Neut # (Auto) Lymph # (Auto) [place] # (Auto) Eos # (Auto) Baso # (Auto) Absolute Nucleated RBC Nucleated RBC % PT INR Sodium Potassium Chloride Carbon Dioxide Anion Gap BUN Creatinine Estimated GFR (MDRD) Glucose Calcium Total Bilirubin AST ALT Alkaline Phosphatase Troponin I High Sens 6.1 Total Protein Albumin Globulin Albumin/Globulin Ratio Lipase - Rads (name of study) abd/pelvic CT Radiology: Prelim report reviewed (some free fluid c/w ascites. Incidental gallstone. No acute process. ), See rad report PD MEDICAL DECISION MAKING - ED course Complexity details: reviewed results, re-evaluated patient (equivocal improvement with GI PO meds. ), considered differential (His pain is really upper abdomen and not chest per se. EKG and troponin are normal. CT of the abdomen showed a gallstone without acute cholecystitis. Else normal (some free fluid c/w liver disease; no free air).), d/w patient Departure - Departure Disposition: 01 Home, Self Care Clinical Impression: Upper abdominal pain Condition: Stable Record reviewed to determine appropriate education?: Yes Instructions: ED Abdominal Pain Unkn Cause Male Follow-Up: ALEJANDRA KIM MD [Primary Care Provider] - Comments: Your CT scan does not show any obvious acute process. You do have a small amount of free fluid in the abdomen consistent with your known ascites. Its just a very mild amount. You do have a gallstone present in your gallbladder but no signs of wall thickening or acute inflammation. Consideration would be some gallbladder spasming episodically causing the pain like you had tonight. Other considerations could be muscular or irritation of the stomach and these would not show on testing. You can follow-up with the surgery to discuss any further evaluation of the gallbladder. Follow-up with your primary care this coming week. Be sure to continue your stomach medicine (Prilosec/omeprazole) regularly. We gave you for oxycodone tablets because pharmacies are closed at this point. Use these episodically if needed for recurrent pain episodes. Return to the ER if significant pain despite the medicines, repetitive vomiting, fever, bloody stools or other concerns. Discharge Date/Time: 04/17/21 21:55
[2021-04-17 19:16] LABS: BASOPHILS # (AUTO) 0.1 10^3/uL (0.0-0.1); BASOPHILS % (AUTO) 0.8 %; EOSINOPHILS # (AUTO) 0.3 10^3/uL (0.0-0.7); HCT - HEMATOCRIT 35.6 % (42.0-52.0); HGB - HEMOGLOBIN 12.2 g/dL (14.0-18.0); LYMPHOCYTES # (AUTO) 3.1 10^3/uL (1.5-3.5); LYMPHOCYTES % (AUTO) 36.4 %; MEAN CORPUSCULAR HEMOGLOBIN 31.5 pg (27.0-31.0); MEAN CORPUSCULAR HGB CONC 34.3 g/dL (32.0-36.0); MEAN PLATELET VOLUME 9.7 fL (7.4-11.4); MONOCYTES # (AUTO) 0.9 10^3/uL (0.0-1.0); MONOCYTES % (AUTO) 9.9 %; NEUTROPHILS # (AUTO) 4.1 10^3/uL (1.5-6.6); NEUTROPHILS % (AUTO) 48.4 %; PLT - PLATELET COUNT 137 10^3/uL (130-450); RED BLOOD COUNT 3.87 10^6/uL (4.70-6.10); RED CELL DISTRIBUTION WIDTH 14.8 % (12.0-15.0); WHITE BLOOD COUNT 8.6 x10^3/uL (4.8-10.8)
[2021-04-17] MEDS ORDERED: MAG HYDROX/AL HYDROX/SIMETH 30 ML UDC PO STA (19:24)
[2021-04-17] MEDS ORDERED: LIDOCAINE VISCOUS 2% 15 ML UDC MM STA (19:24)
[2021-04-17] MEDS ORDERED: HYDROmorphone 1 MG/ML CARPUJECT IVP STA (19:24)
[2021-04-17 19:31] LABS: ALBUMIN 3.1 g/dL (3.2-5.5); ALBUMIN/GLOBULIN RATIO 0.9 (1.0-2.2); BILIRUBIN,TOTAL 1.9 mg/dL (0.2-1.0); CALCIUM 8.9 mg/dL (8.5-10.3); CREATININE 0.7 mg/dL (0.6-1.2); POTASSIUM 3.9 mmol/L (3.5-5.0); TOTAL PROTEIN 6.7 g/dL (6.7-8.2)
[2021-04-17] MEDS ORDERED: IOPAMIDOL-300 100 ML VIAL ONE (19:32)
--- NOTE | 2021-04-17 19:40 | XRAY Report ---
PROCEDURE: Chest 1 View X-Ray INDICATIONS: Chest pain TECHNIQUE: One view of the chest was acquired. COMPARISON: None. FINDINGS: Surgical changes and devices: None. Lungs and pleura: No pleural effusions or pneumothorax. Lungs are clear. Mediastinum: Mediastinal contours appear normal. Heart size is normal. Bones and chest wall: No suspicious bony lesions. Overlying soft tissues appear unremarkable. IMPRESSION: No acute disease. Reviewed by: Josh Oh MD on 04/17/2021 7:39 PM PDT Approved by: Josh Oh MD on 04/17/2021 7:39 PM PDT Station ID: [id number]
[2021-04-17 19:46] LABS: INR 2.1 (0.8-1.2); PT - PROTHROMBIN TIME 22.9 secs (9.9-12.6)
[2021-04-17] MEDS ORDERED: IOPAMIDOL-300 100 ML VIAL IVP ONE (20:01)
--- NOTE | 2021-04-17 20:37 | CT Report ---
PROCEDURE: Abdomen/Pelvis W INDICATIONS: epigastric pain abrupt today CONTRAST: IV CONTRAST: Isovue 300 ml: 100 PO CONTRAST: *NO PO CONTRAST TECHNIQUE: After the administration of IV contrast, 5 mm thick sections acquired from the diaphragms to the symp hysis. 5 mm thick coronal and sagittal reformats were acquired. For radiation dose reduction, the f ollowing was used: automated exposure control, adjustment of mA and/or kV according to patient size. COMPARISON: None. FINDINGS: ABDOMEN: Lung bases: Normal Heart:Normal in size. No pericardial effusion. Liver: Mildly nodular contour of the liver raising the possibility of cirrhosis. Recanalized umbilica l vein. Perisplenic and anastasiia hepatis varices Gallbladder: Numerous gallstones are present measuring up to 1.6 cm in size Bile ducts: Normal. Pancreas: Normal. Spleen: Moderately enlarged. Adrenals: Normal. Kidneys and ureters: Normal. Stomach and duodenum: Normal. Bowel: Fluid-filled loops of small bowel are present. No definite transition point is seen. The appen guadalupe appears within normal limits and contains gas in its lumen. There is diffuse moderate stool. [place] diverticulosis incidentally noted without evidence of acute inflammation. Other: Trace fluid/stranding in the right paracolic gutter Abdominal nodes: Normal. Aorta: Normal in size. IVC: Normal. Ventral wall: Normal. PELVIS: Bladder: Normal. Pelvic nodes: Normal. Inguinal: Small fat-containing right inguinal hernia. Bones: No vertebral body compression fracture. No suspicious bone lesion. IMPRESSION: Numerous fluid-filled loops of small bowel, raising possibility of enteritis, malabsorption and/or dy smotility. No definite transition point seen at this time. Cirrhosis of the liver. Moderate splenomegaly. Incidental cholelithiasis. Trace fluid/edema within the right paracolic gutter although the exact etiology is unknown. The appen guadalupe is thought to be seen and grossly normal. This could be related to cirrhosis although recommend c linical correlation Additional chronic and incidental findings as above. Reviewed by: Josh Oh MD on 04/17/2021 8:36 PM PDT Approved by: Josh Oh MD on 04/17/2021 8:36 PM PDT Station ID: [id number]
[2021-04-17] MEDS ORDERED: oxyCODONE/ACET 5/325 Prepack 4 PO STA (21:06)
[2021-04-17 21:20] VITALS: BP 109/66
== END 2021-04-17 21:55 | disposition home or self-care (01) ==
LOC: ED 18:48
DX: K80.00 Calculus of gallbladder with acute cholecystitis without obstruction (principal); R10.10 Upper abdominal pain, unspecified
CPT/HCPCS: 36415; 71045; 74177; 80053; 83690; 84484; 85025; 85610; 93005; 96374; 99284; A9270; J1170; Q9967

== ENCOUNTER 2021-05-13 08:47 | Outpatient (CLI) | payer OTHER, MEDICAID ==
[2021-05-13 09:12] LABS: ALBUMIN 3.4 g/dL (3.2-5.5); ALBUMIN/GLOBULIN RATIO 1.1 (1.0-2.2); BILIRUBIN,TOTAL 1.7 mg/dL (0.2-1.0); CREATININE 0.7 mg/dL (0.6-1.2); POTASSIUM 3.8 mmol/L (3.5-5.0); TOTAL PROTEIN 6.4 g/dL (6.7-8.2)
[2021-05-13 09:16] LABS: PT - PROTHROMBIN TIME 21.9 secs (9.9-12.6)
== END 2021-05-13 08:48 | disposition home or self-care (01) ==
LOC: LAB 08:47
PROVIDERS: ATTEND Family Medicine
DX: I82.419 Acute embolism and thrombosis of unspecified femoral vein (principal); K70.31 Alcoholic cirrhosis of liver with ascites
CPT/HCPCS: 36415; 80053; 85610

== ENCOUNTER 2021-05-24 10:58 | Outpatient (CLI) | payer OTHER, MEDICAID ==
[2021-05-24 11:17] LABS: BASOPHILS # (AUTO) 0.1 10^3/uL (0.0-0.1); BASOPHILS % (AUTO) 0.9 %; EOSINOPHILS # (AUTO) 0.2 10^3/uL (0.0-0.7); EOSINOPHILS % (AUTO) 3.2 %; HGB - HEMOGLOBIN 12.3 g/dL (14.0-18.0); LYMPHOCYTES # (AUTO) 2.4 10^3/uL (1.5-3.5); LYMPHOCYTES % (AUTO) 35.2 %; MEAN CORPUSCULAR HEMOGLOBIN 29.9 pg (27.0-31.0); MEAN CORPUSCULAR HGB CONC 33.2 g/dL (32.0-36.0); MEAN PLATELET VOLUME 9.9 fL (7.4-11.4); MONOCYTES # (AUTO) 0.8 10^3/uL (0.0-1.0); MONOCYTES % (AUTO) 11.7 %; NEUTROPHILS # (AUTO) 3.3 10^3/uL (1.5-6.6); NEUTROPHILS % (AUTO) 48.7 %; PLT - PLATELET COUNT 125 10^3/uL (130-450); RED BLOOD COUNT 4.11 10^6/uL (4.70-6.10); WHITE BLOOD COUNT 6.9 x10^3/uL (4.8-10.8)
[2021-05-24 11:19] LABS: INR 1.8 (0.8-1.2); PT - PROTHROMBIN TIME 20.1 secs (9.9-12.6)
[2021-05-24 11:25] LABS: ALBUMIN 3.6 g/dL (3.2-5.5); ALBUMIN/GLOBULIN RATIO 1.1 (1.0-2.2); BILIRUBIN,TOTAL 1.7 mg/dL (0.2-1.0); CALCIUM 9.3 mg/dL (8.5-10.3); CREATININE 0.6 mg/dL (0.6-1.2); POTASSIUM 3.9 mmol/L (3.5-5.0); TOTAL PROTEIN 6.9 g/dL (6.7-8.2)
== END 2021-05-24 10:59 | disposition home or self-care (01) ==
LOC: LAB 10:58
PROVIDERS: ATTEND Internal Medicine
DX: Z01.812 Encounter for preprocedural laboratory examination (principal); I82.419 Acute embolism and thrombosis of unspecified femoral vein; K70.31 Alcoholic cirrhosis of liver with ascites
CPT/HCPCS: 36415; 80053; 85025; 85610

== ENCOUNTER 2021-06-04 12:00 | Outpatient (CLI) | payer OTHER, MEDICAID ==
[2021-06-04 12:28] LABS: INR 1.6 (0.8-1.2); PT - PROTHROMBIN TIME 18.1 secs (9.9-12.6)
[2021-06-04 12:46] LABS: ALBUMIN 3.4 g/dL (3.2-5.5); ALBUMIN/GLOBULIN RATIO 1.1 (1.0-2.2); BILIRUBIN,TOTAL 1.6 mg/dL (0.2-1.0); CALCIUM 9.5 mg/dL (8.5-10.3); CREATININE 0.5 mg/dL (0.6-1.2); POTASSIUM 4.2 mmol/L (3.5-5.0); TOTAL PROTEIN 6.6 g/dL (6.7-8.2)
== END 2021-06-04 12:01 | disposition home or self-care (01) ==
LOC: LAB 12:00
PROVIDERS: ATTEND Family Medicine
DX: I82.419 Acute embolism and thrombosis of unspecified femoral vein (principal); K70.31 Alcoholic cirrhosis of liver with ascites
CPT/HCPCS: 36415; 80053; 85610

== ENCOUNTER 2021-06-08 09:35 | Outpatient (CLI) | payer OTHER, MEDICAID ==
[2021-06-08 10:01] LABS: ALBUMIN 3.5 g/dL (3.2-5.5); ALBUMIN/GLOBULIN RATIO 1.1 (1.0-2.2); BILIRUBIN,TOTAL 1.4 mg/dL (0.2-1.0); CALCIUM 9.6 mg/dL (8.5-10.3); CREATININE 0.4 mg/dL (0.6-1.2); TOTAL PROTEIN 6.7 g/dL (6.7-8.2)
[2021-06-08 11:13] LABS: INR 1.7 (0.8-1.2); PT - PROTHROMBIN TIME 19.1 secs (9.9-12.6)
== END 2021-06-08 09:36 | disposition home or self-care (01) ==
LOC: LAB 09:35
PROVIDERS: ATTEND Family Medicine
DX: I82.419 Acute embolism and thrombosis of unspecified femoral vein (principal); K70.31 Alcoholic cirrhosis of liver with ascites
CPT/HCPCS: 36415; 36416; 80053; 85610

== ENCOUNTER 2021-06-23 09:44 | Outpatient (CLI) | payer OTHER, MEDICAID ==
[2021-06-23 10:27] LABS: ALBUMIN 3.3 g/dL (3.2-5.5); ALBUMIN/GLOBULIN RATIO 1.2 (1.0-2.2); BILIRUBIN,TOTAL 0.9 mg/dL (0.2-1.0); CALCIUM 8.6 mg/dL (8.5-10.3); CREATININE 0.6 mg/dL (0.6-1.2); POTASSIUM 3.9 mmol/L (3.5-5.0)
[2021-06-23 10:38] LABS: INR 1.7 (0.8-1.2); PT - PROTHROMBIN TIME 18.9 secs (9.9-12.6)
== END 2021-06-23 09:45 | disposition home or self-care (01) ==
LOC: LAB 09:44
PROVIDERS: ATTEND Family Medicine
DX: I82.419 Acute embolism and thrombosis of unspecified femoral vein (principal); K70.31 Alcoholic cirrhosis of liver with ascites
CPT/HCPCS: 36415; 80053; 85610

== ENCOUNTER 2021-07-07 08:47 | Outpatient (CLI) | payer OTHER, MEDICAID ==
[2021-07-07 09:10] LABS: ALBUMIN 3.3 g/dL (3.2-5.5); ALBUMIN/GLOBULIN RATIO 1.1 (1.0-2.2); BILIRUBIN,TOTAL 0.9 mg/dL (0.2-1.0); CALCIUM 8.5 mg/dL (8.5-10.3); CREATININE 0.5 mg/dL (0.6-1.2); POTASSIUM 3.9 mmol/L (3.5-5.0); TOTAL PROTEIN 6.2 g/dL (6.7-8.2)
[2021-07-07 09:31] LABS: INR 1.9 (0.8-1.2); PT - PROTHROMBIN TIME 21.3 secs (9.9-12.6)
== END 2021-07-07 08:48 | disposition home or self-care (01) ==
LOC: LAB 08:47
PROVIDERS: ATTEND Family Medicine
DX: I82.419 Acute embolism and thrombosis of unspecified femoral vein (principal); K70.31 Alcoholic cirrhosis of liver with ascites
CPT/HCPCS: 36415; 80053; 85610

== ENCOUNTER 2021-07-21 08:29 | Outpatient (CLI) | payer OTHER, MEDICAID ==
[2021-07-21 09:07] LABS: INR 1.8 (0.8-1.2); PT - PROTHROMBIN TIME 19.6 secs (9.9-12.6)
[2021-07-21 09:26] LABS: ALBUMIN 3.4 g/dL (3.2-5.5); ALBUMIN/GLOBULIN RATIO 1.2 (1.0-2.2); CALCIUM 8.9 mg/dL (8.5-10.3); CREATININE 0.6 mg/dL (0.6-1.2); POTASSIUM 4.3 mmol/L (3.5-5.0); TOTAL PROTEIN 6.2 g/dL (6.7-8.2)
== END 2021-07-21 08:30 | disposition home or self-care (01) ==
LOC: LAB 08:29
PROVIDERS: ATTEND Family Medicine
DX: I82.419 Acute embolism and thrombosis of unspecified femoral vein (principal); K70.31 Alcoholic cirrhosis of liver with ascites
CPT/HCPCS: 36415; 80053; 85610

== ENCOUNTER 2021-08-04 10:07 | Outpatient (CLI) | payer OTHER, MEDICAID ==
[2021-08-04 10:32] LABS: ALBUMIN 3.7 g/dL (3.2-5.5); ALBUMIN/GLOBULIN RATIO 1.1 (1.0-2.2); BILIRUBIN,TOTAL 1.4 mg/dL (0.2-1.0); CALCIUM 9.2 mg/dL (8.5-10.3); CREATININE 0.7 mg/dL (0.6-1.2); INR 1.9 (0.8-1.2); POTASSIUM 4.4 mmol/L (3.5-5.0); PT - PROTHROMBIN TIME 21.7 secs (9.9-12.6); TOTAL PROTEIN 7.1 g/dL (6.7-8.2)
== END 2021-08-04 10:08 | disposition home or self-care (01) ==
LOC: LAB 10:07
PROVIDERS: ATTEND Family Medicine
DX: I82.419 Acute embolism and thrombosis of unspecified femoral vein (principal); K70.31 Alcoholic cirrhosis of liver with ascites
CPT/HCPCS: 36415; 80053; 85610

== ENCOUNTER 2021-08-18 09:09 | Outpatient (CLI) | payer OTHER, MEDICAID ==
[2021-08-18 09:34] LABS: INR 1.9 (0.8-1.2); PT - PROTHROMBIN TIME 21.7 secs (9.9-12.6)
[2021-08-18 09:39] LABS: ALBUMIN 3.6 g/dL (3.2-5.5); ALBUMIN/GLOBULIN RATIO 1.1 (1.0-2.2); CALCIUM 9.1 mg/dL (8.5-10.3); CREATININE 0.5 mg/dL (0.6-1.2); POTASSIUM 4.5 mmol/L (3.5-5.0)
== END 2021-08-18 09:10 | disposition home or self-care (01) ==
LOC: LAB 09:09
PROVIDERS: ATTEND Family Medicine
DX: I82.419 Acute embolism and thrombosis of unspecified femoral vein (principal); K70.31 Alcoholic cirrhosis of liver with ascites
CPT/HCPCS: 36415; 80053; 85610

== ENCOUNTER 2021-09-01 08:46 | Outpatient (CLI) | payer OTHER, MEDICAID ==
[2021-09-01 09:13] LABS: INR 2.3 (0.8-1.2); PT - PROTHROMBIN TIME 25.2 secs (9.9-12.6)
[2021-09-01 09:29] LABS: ALBUMIN 3.7 g/dL (3.2-5.5); ALBUMIN/GLOBULIN RATIO 1.3 (1.0-2.2); BILIRUBIN,TOTAL 1.1 mg/dL (0.2-1.0); CALCIUM 8.9 mg/dL (8.5-10.3); CREATININE 0.5 mg/dL (0.6-1.2); POTASSIUM 4.4 mmol/L (3.5-5.0); TOTAL PROTEIN 6.6 g/dL (6.7-8.2)
== END 2021-09-01 08:47 | disposition home or self-care (01) ==
LOC: LAB 08:46
PROVIDERS: ATTEND Family Medicine
DX: I82.419 Acute embolism and thrombosis of unspecified femoral vein (principal); K70.31 Alcoholic cirrhosis of liver with ascites
CPT/HCPCS: 36415; 80053; 85610